=== PATIENT | male | born 1945 | race Caucasian/White ===

== ENCOUNTER 2016-10-23 10:11 | Inpatient (IN) | payer MEDICAID, MEDICARE ==
[2016-10-23] MEDS ORDERED: SODIUM CHLORIDE 0.9% 1,000 ML IV STA (10:40)
[2016-10-23 11:05] LABS: Basophils % (A) 0 %; CHCM 32.3; Eosinophils # (A) 0.1 k/uL (0-0.7); Eosinophils % (A) 0 %; HCT 47.3 % (39.0-53.0); HGB 15.3 gm/dL (13.0-17.5); Luc % (Auto) 2; Lymphocytes # (A) 1.4 k/uL (1.0-4.8); Lymphocytes % (A) 11 %; MCH 30.2 pg (25.0-35.0); MCHC 32.3 g/dL (31.0-37.0); MCV 93.3 fL (80.0-100.0); Mean Platelet Volume 9.4; Monocytes # (A) 0.7 k/uL (0-1.0); Monocytes % (A) 5 %; Neutrophils # (A) 10.3 k/uL (1.3-7.7); Neutrophils % (A) 81 %; RBC 5.06 m/uL (4.30-5.90); RDW 14.2 % (11.5-15.5); WBC 12.7 k/uL (3.8-10.6)
[2016-10-23 11:15] LABS: ALT 43 U/L (21-72); AST 30 U/L (17-59); Alkaline Phosphatase 147 U/L (38-126); Anion Gap 15 mmol/L; Blood Urea Nitrogen 13 mg/dL (9-20); Calcium 9.1 mg/dL (8.4-10.2); Carbon Dioxide 19 mmol/L (22-30); Chloride 111 mmol/L (98-107); Glucose 112 mg/dL (74-99); Magnesium 1.9 mg/dL (1.6-2.3); Non-African American GFR(MDRD) >60 (>60 ml/min/1.73 sqM); Phosphorous 3.4 mg/dL (2.5-4.5); Potassium 4.2 mmol/L (3.5-5.1); Sodium 145 mmol/L (137-145); Total Bilirubin 1.8 mg/dL (0.2-1.3); Total Protein 6.3 g/dL (6.3-8.2)
[2016-10-23 11:18] LABS: INR 1.2 (<1.1); Partial Thromboplastin Time 23.2 sec (22.0-30.0); Prothrombin Time 11.7 sec (9.0-12.0)
[2016-10-23 11:40] LABS: Creatine Kinase MB 2.1 ng/mL (0.0-2.4)
[2016-10-23 11:43] LABS: Troponin I 0.095 ng/mL (0.000-0.034)
[2016-10-23 12:05] LABS: Acetaminophen <10.0 ug/mL; Salicylate <1.0 mg/dL
[2016-10-23] MEDS ORDERED: HEPARIN SODIUM,PORCINE 5,000 UNIT/ML 1 ML VIAL IV PRN (12:58)
[2016-10-23] MEDS ORDERED: HEPARIN SODIUM,PORCINE 5,000 UNIT/ML 1 ML VIAL IV ONE (12:58)
[2016-10-23] MEDS ORDERED: ASPIRIN 81 MG CHEW PO STA (12:58)
[2016-10-23] MEDS ORDERED: NITROGLYCERIN SL TABS 0.4 MG TAB SUBLINGUAL PRN ×2 (12:58→13:40)
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
[2016-10-23] MEDS ORDERED: HEPARIN SODIUM,PORCINE/D5W PMX 25,000 UNIT in DEXTROSE/WATER 1 500ML.BAG IV SCH (13:00)
--- NOTE | 2016-10-23 13:06 | XR ---
EXAMINATION TYPE: XR chest 1V DATE OF EXAM: 10/23/2016 COMPARISON: NONE HISTORY: Difficulty breathing TECHNIQUE: Single frontal view of the chest is obtained. FINDINGS: Diffuse perihilar interstitial process seen with tiny bilateral effusions and cardiomegaly . No pneumothorax. Chronic rib cage deformity seen. Arthropathy of the shoulders. Correlate for under lying COPD. IMPRESSION: 1. Perihilar interstitial pattern with tiny bilateral effusions. Correlate for mild venous congestion . Differential diagnosis would also include atypical or interstitial pneumonitis.
[2016-10-23] MEDS ORDERED: ALPRAZolam 0.25 MG TAB PO PRN (13:40)
[2016-10-23] MEDS ORDERED: FUROSEMIDE 10 MG/ML 2 ML VIAL IV STA (13:40)
[2016-10-23] MEDS ORDERED: ATORVASTATIN 80 MG TAB PO STA (13:40)
[2016-10-23] MEDS ORDERED: ASPIRIN 325 MG TAB PO STA (13:40)
[2016-10-23] MEDS ORDERED: SODIUM CHLORIDE 0.9% 1,000 ML in EMPTY BAG 1 BAG IV ONE (13:40)
[2016-10-23] MEDS ORDERED: ALPRAZolam 0.5 MG TAB PO PRN (13:40)
[2016-10-23] MEDS ORDERED: IV FLUID CONTINUATION 650 ML IV ONE (14:04)
[2016-10-23] MEDS ORDERED: diphenhydrAMINE 50 MG/ML 1 ML VIAL IVP ONE (14:18)
[2016-10-23] MEDS ORDERED: diphenhydrAMINE 50 MG/ML 1 ML VIAL ONE (14:20)
[2016-10-23] MEDS ORDERED: MIDAZOLAM 2 MG/2 ML VIAL IV ONE (14:20)
[2016-10-23] MEDS ORDERED: MIDAZOLAM 2 MG/2 ML VIAL ONE (14:21)
[2016-10-23] MEDS ORDERED: LIDOCAINE 2% INJ 20 MG/ML SQ ONE (14:23)
[2016-10-23] MEDS ORDERED: HEPARIN SODIUM 1,000 UNIT/ML VIAL ONE (14:25)
[2016-10-23] MEDS ORDERED: VERAPAMIL SYRINGE (5 MG/10 ML) INTRAARTER ONE (14:26)
[2016-10-23] MEDS ORDERED: LIDOCAINE 2% SYG (PF) 100 MG/5 ML IV ONE (14:35)
[2016-10-23] MEDS ORDERED: IOHEXOL 350 MG/ML 125ML BOTTLE INJ ONE (14:48)
[2016-10-23] MEDS ORDERED: RX INFO: IV CONTRAST WAS GIVEN 1 EACH MISC MISCELLANE PRN (14:51)
[2016-10-23] MEDS ORDERED: SODIUM CHLORIDE 0.9% 1,000 ML IV SCH (15:00)
[2016-10-23 15:18] LABS: Glucose,Whole Blood 91 mg/dL (75-99)
[2016-10-23] MEDS: SPIRONOLACTONE 25 MG TAB PO SCH (16:00)
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
[2016-10-23 18:11] LABS: Creatine Kinase MB 1.9 ng/mL (0.0-2.4)
[2016-10-23 18:15] LABS: Troponin I 0.118 ng/mL (0.000-0.034)
[2016-10-23] MEDS: FUROSEMIDE 10 MG/ML 2 ML VIAL IV SCH (20:53)
[2016-10-23] MEDS: MAGNESIUM SULFATE-D5W PMX 1 GM in DEXTROSE/WATER 1 100ML.BAG IVPB SCH ×2 (20:58→23:23)
--- NOTE | 2016-10-23 23:12 | CC ---
DATE OF SERVICE: Mr. Auguste is a 71-year-old male with no prior cardiac history, who is not followed by a physician regularly who presented with symptoms of progressive dyspnea going on for the last few days and has noted to be bradycardic at home. He came into the emergency room and was found to have a complete heart block, findings of congestive heart failure as well as minimal elevation of troponin. In view of that, recommendation made regarding cardiac catheterization. The procedure as well as the risks and complications were discussed with the patient who is in full understanding and agreement. PROCEDURE: Patient was brought to the slab lifting engineer in a fasting semisedated state after receiving fentanyl and Benadryl and after achieving moderate conscious sedated state, Using Xylocaine anesthesia and Seldinger technique, a 6 Australian sheath was introduced in right radial artery. Selective right and left coronary angiography was performed using 5 Australian 3-1/2 Bend right and left Eh catheter. Multiple view of the coronary arteries including hemiaxial views were obtained. Following that, a 5 Australian tight pigtail catheter was introduced into the left ventricle and a 30 degrees KUNZ view of the left ventricle was obtained. Following that, catheters were removed. Images were reviewed. Of note, the patient received 4000 units of heparin intravenously as well intra-arterial verapamil. After finishing the images of the left coronary system and while the catheter was in the descending aorta, not engaged at the ostium, the patient had 2 rounds of nonsustained ventricular tachycardia that was self-terminated. FINDINGS: LEFT MAIN: This is a large-size vessel bifurcating into left circumflex, left anterior descending artery. Left main coronary artery is without any evidence of significant obstructive coronary artery disease. Left anterior descending artery: This is a large-size vessel reaching toward the apex tapers down and distal third giving rise to 3 diagonal branches. The first one is moderate to large in caliber. The left anterior descending artery as well as its branches have no evidence of obstructive lung disease. Left circumflex: This is a large nondominant vessel, giving rise to 2 obtuse marginal branches. The left circumflex as well as its branches has no evidence of obstructive coronary artery disease. RIGHT CORONARY ARTERY: This is a large dominant vessel, bifurcating distally into PDA and posterolateral segment and branches. The right coronary artery and its branches have no evidence of obstructive disease. Left ventriculogram: Left ventriculogram was performed in 30 degrees KUNZ view and revealed severe anteroapical and inferior wall hypokinesis to akinesis. The estimated ejection fraction of 25%. HEMODYNAMICS: There was no gradient across the aortic valve. The left ventricular end-diastolic pressure was 26 millimeters mercury. CONCLUSION: 1. Normal coronary arteries. 2. Severely impaired left ventricular systolic function. 3. Spontaneous runs of ventricular tachycardia monomorphic. RECOMMENDATION: In view of the findings and the anatomy, I have recommended proceeding with evaluation for permanent pacemaker and ICD implantation. The opinion from Dr. Cedeno will be obtained and in the meantime we will continue present therapy. Those findings and recommendations were discussed with the patient and his family who are in full understanding and agreement. Duration of the procedure: 20 minutes.
[2016-10-23] MEDS: ENOXAPARIN 40 MG/0.4 ML SYRINGE SQ SCH (23:23)
[2016-10-24 01:11] LABS: Creatine Kinase MB 1.5 ng/mL (0.0-2.4)
[2016-10-24 01:17] LABS: Troponin I 0.135 ng/mL (0.000-0.034)
[2016-10-24 04:44] LABS: Basophils % (A) 0 %; CH 30.1; CHCM 32.4; Eosinophils # (A) 0.2 k/uL (0-0.7); Eosinophils % (A) 2 %; HCT 43.8 % (39.0-53.0); HDW 2.55; HGB 14.1 gm/dL (13.0-17.5); Luc % (Auto) 2; Lymphocytes # (A) 1.8 k/uL (1.0-4.8); Lymphocytes % (A) 17 %; MCHC 32.1 g/dL (31.0-37.0); MCV 93.4 fL (80.0-100.0); Mean Platelet Volume 9.9; Monocytes # (A) 0.7 k/uL (0-1.0); Monocytes % (A) 7 %; Neutrophils # (A) 7.6 k/uL (1.3-7.7); Neutrophils % (A) 72 %; RBC 4.69 m/uL (4.30-5.90); RDW 14.1 % (11.5-15.5); WBC 10.6 k/uL (3.8-10.6); WBC (Perox) 10.62
[2016-10-24 05:04] LABS: Anion Gap 10 mmol/L; Blood Urea Nitrogen 16 mg/dL (9-20); Calcium 8.4 mg/dL (8.4-10.2); Carbon Dioxide 22 mmol/L (22-30); Chloride 109 mmol/L (98-107); Cholesterol 125 mg/dL (<200); Glucose 107 mg/dL (74-99); HDL Cholesterol 23 mg/dL (40-60); Magnesium 2.4 mg/dL (1.6-2.3); Non-African American GFR(MDRD) >60 (>60 ml/min/1.73 sqM); Phosphorous 4.1 mg/dL (2.5-4.5); Potassium 3.8 mmol/L (3.5-5.1); Sodium 141 mmol/L (137-145); Triglycerides 84 mg/dL (<150)
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
[2016-10-24] MEDS ORDERED: Potassium Replacement Protocol 1 EACH MISC MISCELLANE PRN (05:49)
[2016-10-24] MEDS ORDERED: POTASSIUM CHLORIDE ER 20 MEQ TAB.ER PO SCH (06:00)
[2016-10-24] MEDS: ASPIRIN 81 MG CHEW PO SCH (08:22)
[2016-10-24] MEDS: SPIRONOLACTONE 25 MG TAB PO SCH (08:22)
[2016-10-24] MEDS: ENOXAPARIN 40 MG/0.4 ML SYRINGE SQ SCH (08:22)
[2016-10-24] MEDS: FUROSEMIDE 10 MG/ML 2 ML VIAL IV SCH (08:23)
[2016-10-24] MEDS ORDERED: ASPIRIN 325 MG TAB PO SCH (09:00)
--- NOTE | 2016-10-24 10:10 | PN ---
Mr. Auguste is a 71-year-old male who presented with symptoms of congestive heart failure, was found to have complete heart block and evidence of cardiomyopathy with runs of spontaneous ventricular tachycardia. He is feeling much better today. His breathing is stable. He denies any symptoms of chest pain. He denies any dizziness or palpitation. He continues to be in complete heart block with stable ventricle rhythm in the 40s. His blood pressure is stable and has not required any pressors. He is scheduled to undergo a ICD pacemaker implantation today. He continues to be on aspirin 320 mg daily, Lasix 20 mg IV q.12 hours and Aldactone 25 mg daily. PHYSICAL EXAMINATION: Blood pressure 138/60 with a heart rate in the 40s. LUNGS: Clear. HEART: Bradycardic S1, S2, no S3, and a systolic murmur heard at the base. ABDOMEN: Soft, nontender. EXTREMITIES: No edema left side, status post AKA on the right side. Right radial pulse intact. EKG revealed a sinus mechanism with a complete AV dissociation complete heart block. Lab data revealed BUN, creatinine of 16 and 0.89. Potassium 3.8. Hemoglobin of 14.1. His cholesterol is 125 with an LDL of 85. His Lyme disease titers are normal. IMPRESSION: 1. Cardiomyopathy of unclear etiology. 2. Complete heart block. 3. Spontaneous ventricle tachycardia. RECOMMENDATIONS: I will add an DORIS inhibitor to his regimen. Will await the implantation of his ICD and pacemaker. Subsequently we can add beta todd to his regimen. MTDD
[2016-10-24 10:30] VITALS: BMI 24.5
--- NOTE | 2016-10-24 11:03 | ECHOF ---
Referral Reason:chf MEASUREMENTS -------- HEIGHT: 175.3 cm WEIGHT: 78.0 kg BP: 146/74 RVIDd: 3.5 cm (< 3.3) IVSd: 1.2 cm (0.6 - 1.1) LVIDd: 5.0 cm (3.9 - 5.3) LVPWd: 1.1 cm (0.6 - 1.1) IVSs: 1.7 cm LVIDs: 3.6 cm LVPWs: 1.4 cm LA Diam: 4.2 cm (2.7 - 3.8) LAESV Index (A-L): 23.10 ml/m Ao Diam: 3.1 cm (2.0 - 3.7) AV Cusp: 2.2 cm (1.5 - 2.6) MV EXCURSION: 12.842 mm (> 18.000) MV EF SLOPE: 113 mm/s (70 - 150) EPSS: 0.7 cm AV maxP.79 mmHg AV meanP.70 mmHg RAP: 15.00 mmHg RVSP: 73.28 mmHg FINDINGS -------- Resting bradycardia (HR<60bpm). This was a technically good study. The left ventricular size is normal. There is borderline concentric left ventricular hypertrophy. Overall left ventricular systolic function is moderate-severely impaired with, an EF between 30 - 35 %. Apical anterior LV wall motion is hypokinetic. Apical lateral LV wall motion is hypokinetic. Apical inferior LV wall motion is hypokinetic. Apical septum LV wall motion is hypokinetic. The right ventricle is mildly enlarged. The left atrium is mildly dilated. Normal LA size by volume 22+/-6 ml/m2. The right atrium is normal in size. There is mild aortic valve sclerosis. There is mild aortic stenosis present. Peak/mean gradient across the Aortic Valve is 21.79mmHg / 6.70mmHg. The mitral valve leaflets are mildly thickened. Mild mitral annular calcification present. Mild mitral regurgitation is present. [id number] tricuspid regurgitation present. There is severe pulmonary hypertension. The right ventricular systolic pressure, as measured by Doppler, is 73.28mmHg. The pulmonic valve is normal. The aortic root size is normal. The inferior vena cava is dilated with no significant inspiratory collapse which is consistent estimated right atrial pressure of >15 mmHg. The pericardium is normal. CONCLUSIONS -------- 1. Resting bradycardia (HR<60bpm). 2. The left atrium is mildly dilated. 3. Normal LA size by volume 22+/-6 ml/m2. 4. The right atrium is normal in size. 5. There is mild aortic valve sclerosis. 6. There is mild aortic stenosis present. 7. Peak/mean gradient across the Aortic Valve is 21.79mmHg / 6.70mmHg. 8. The mitral valve leaflets are mildly thickened. 9. Mild mitral annular calcification present. 10. Mild mitral regurgitation is present. 11. [id number] tricuspid regurgitation present. 12. This was a technically good study. 13. There is severe pulmonary hypertension. 14. The right ventricular systolic pressure, as measured by Doppler, is 73.28mmHg. 15. The pulmonic valve is normal. 16. The aortic root size is normal. 17. The inferior vena cava is dilated with no significant inspiratory collapse which is consistent estimated right atrial pressure of >15 mmHg. 18. The pericardium is normal. 19. The left ventricular size is normal. 20. There is borderline concentric left ventricular hypertrophy. 21. Apical anterior LV wall motion is hypokinetic. 22. Apical lateral LV wall motion is hypokinetic. 23. Apical inferior LV wall motion is hypokinetic. 24. Apical septum LV wall motion is hypokinetic. 25. The right ventricle is mildly enlarged. EXECUTIVE VICE PRESIDENT AND CHIEF FINANCIAL OFFICER: Julieta Leyva RDCS
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
[2016-10-24] MEDS ORDERED: IV FLUID CONTINUATION 100 ML IV ONE (15:05)
[2016-10-24] MEDS ORDERED: ceFAZolin 2 GM in SODIUM CHLORIDE 0.9% 100 ML IVPB ONE (15:30)
[2016-10-24] MEDS ORDERED: IOHEXOL 350 MG/ML 50ML BOTTLE INJ ONE (15:30)
[2016-10-24] MEDS ORDERED: ceFAZolin 1,000 MG in SODIUM CHLORIDE 0.9% IRRIGATIO 250 ML IRRIGATION ONE (15:31)
[2016-10-24] MEDS ORDERED: SODIUM CHLORIDE 0.9% 50 ML with ceFAZolin 1,000 MG IV ONE ×2 (15:49)
[2016-10-24] MEDS ORDERED: ceFAZolin 1,000 MG in DEXTROSE/WATER 1 50ML.BAG IVPB STA (15:50)
[2016-10-24] MEDS ORDERED: LIDOCAINE 2% INJ 20 MG/ML SQ ONE (15:50)
[2016-10-24] MEDS ORDERED: LIDOCAINE 1% INJ 10MG/ML (10 ML MDV) SQ ONE (16:19)
[2016-10-24] MEDS ORDERED: LACTATED RINGERS 1,000 ML IV ONE (16:26)
[2016-10-24] MEDS ORDERED: LIDOCAINE 1% INJ 10MG/ML (20 ML MDV) SQ ONE ×2 (16:27→16:35)
[2016-10-24] MEDS ORDERED: HYDROcodone/APAP 5-325MG 1 EACH TAB PO PRN (17:19)
[2016-10-24] MEDS ORDERED: ACETAMINOPHEN TAB 325 MG TAB PO PRN (17:19)
--- NOTE | 2016-10-24 17:25 | P.PCN ---
Preoperative Diagnosis: Impression 63-year-old male patient with severe nonischemic cardiomyopathy Symptomatic complete heart block without any transient causes, severe bradycardia with increasing shortness of breath for the last one month No evidence for acute myocardial infarction, any incriminating drugs or electrolyte abnormalities Spontaneous ventricular fibrillation noted in the hospital Severe LV dysfunction Class 2-3 congestive heart failure Dual-chamber ICD implantation for complete heart block with bradycardia and severe cardio myopathy with documented ventricular fibrillation, secondary prevention of sudden cardiac , [employer] Plan Initiate beta blockers now after dual-chamber pacing IV antibiotics Dictation to follow Postoperative Diagnosis: Procedure(s) Performed: Implants: Indications for Procedure: Operative Findings: Description of Procedure:
[2016-10-24] MEDS ORDERED: ACETAMINOPHEN IV (For NPO) 1,000 MG in EMPTY BAG 1 BAG IVPB ONE (17:30)
[2016-10-24] MEDS: METOPROLOL SUCCINATE (ER) 50 MG TAB.ER.24H PO SCH (18:08)
--- NOTE | 2016-10-24 20:45 | CE ---
DATE OF SERVICE: A 71-year-old male patient who presented with third degree heart block and severe cardiomyopathy, nonischemic nature with normal coronary arteries very severe left ventricular dysfunction and spontaneous ventricular fibrillation self terminating. A dual-chamber ICD implantation was performed with MAC (anesthesia present). The patient is brought to the [facility] in a fasting state. Written informed consent was obtained prior to the procedure. First the procedure was transvenous temporary pacemaker was placed via the right femoral vein. Venous access was obtained in the left femoral vein and temporary pacemaker was placed in the RV. Temporary pacing was performed through the procedure and this was removed at the end of the procedure and hemostasis was assured. The left pectoral area was then prepped and draped as per protocol. 1% lidocaine was used for local anesthesia. A 4 cm incision was made parallel to the deltopectoral groove about 1.5 cm medial to it. The incision was carried down to level of pectoralis muscle. A subfascial pocket was made. Hemostasis was assured. The left axillary vein was accessed at 2 separate points and via appropriate-sized introducer sheaths. Two leads were positioned in the right heart. The atrial lead was [employer], model #2088 [id number], 52 cm in length, serial #[id number]. P waves were 4.2 mV, and pacing impedance 850 ohms and finally at the end of the procedure, the pacing threshold was 1.25 v at 0.5 ms by the end of the procedure. The RV lead was a single coil ICD lead, model #7122Q, 58 cm in length, and serial #[id number]. The lead was positioned in the low RV septum and screwed in. R-waves 11.8 mV, pacing impedance 700 ohms. Pacing threshold 0.5 v at 0.5 ms. 10 volt test was negative. Both leads were secured to the underlying pectoralis fascia using 2 nonabsorbable sutures. Pocket was irrigated with antibiotic solution. Leads were correct to the generator, [employer], model #[id number], serial #[id number]. The lead and the generator were then placed in the subfascial pocket. The wound was closed in 3 layers and dressed per protocol. RESULT: 1. Successful dual-chamber ICD implantation for management of complete heart block with symptomatic heart failure, class II to III. 2. Severe left ventricle systolic dysfunction. 3. Normal coronary arteries. 4. Spontaneous ventricular fibrillation, self-limiting. PLAN: IV antibiotics and now start metoprolol succinate 50 mg p.o. daily and maximize. IV antibiotics for the next 24 hours.
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
[2016-10-24] MEDS: LISINOPRIL 5 MG TAB PO SCH (22:15)
[2016-10-24] MEDS: ceFAZolin 2 GM in SODIUM CHLORIDE 0.9% 100 ML IVPB SCH (23:51)
[2016-10-25] MEDS: ceFAZolin 2 GM in SODIUM CHLORIDE 0.9% 100 ML IVPB SCH ×3 (05:15→17:15)
[2016-10-25 05:31] LABS: Basophils % (A) 0 %; CH 29.8; CHCM 31.8; Eosinophils # (A) 0.4 k/uL (0-0.7); Eosinophils % (A) 4 %; HCT 43.9 % (39.0-53.0); HDW 2.51; Hypochromasia Slight; Luc # (Auto) 0.15; Luc % (Auto) 1; Lymphocytes # (A) 1.3 k/uL (1.0-4.8); Lymphocytes % (A) 12 %; MCH 30.1 pg (25.0-35.0); MCHC 31.9 g/dL (31.0-37.0); MCV 94.4 fL (80.0-100.0); Mean Platelet Volume 9.6; Monocytes # (A) 0.8 k/uL (0-1.0); Monocytes % (A) 7 %; Neutrophils # (A) 7.9 k/uL (1.3-7.7); Neutrophils % (A) 75 %; RBC 4.65 m/uL (4.30-5.90); WBC 10.5 k/uL (3.8-10.6)
[2016-10-25 05:47] LABS: Anion Gap 9 mmol/L; Blood Urea Nitrogen 15 mg/dL (9-20); Calcium 8.4 mg/dL (8.4-10.2); Carbon Dioxide 23 mmol/L (22-30); Chloride 109 mmol/L (98-107); Glucose 84 mg/dL (74-99); Magnesium 2.1 mg/dL (1.6-2.3); Non-African American GFR(MDRD) >60 (>60 ml/min/1.73 sqM); Sodium 141 mmol/L (137-145)
--- NOTE | 2016-10-25 06:50 | XR ---
EXAMINATION TYPE: XR chest 2V DATE OF EXAM: 10/25/2016 COMPARISON: Chest x-ray from 2 days ago. HISTORY: Arrhythmia status post pacemaker placement TECHNIQUE: Frontal and lateral views of the chest are obtained. FINDINGS: There is redemonstration of mild cardiomegaly. There is new 2-lead pacemaker/AICD with lead s projecting over right atrium and right ventricle. There are tiny bilateral pleural effusions with m ild central vascular congestion. There is patchy bibasilar atelectasis and/or infiltrate. Upper lungs are clear without pneumothorax. Osseous structures are intact. IMPRESSION: 1. New dual-lead pacemaker with leads in right atrium and right ventricle. 2. Persistent CHF exacerbation as there is cardiomegaly with small bilateral pleural effusions and ce ntral vascular congestion redemonstrated bilaterally. No significant change from prior study.
[2016-10-25] MEDS: LISINOPRIL 5 MG TAB PO SCH (08:29)
[2016-10-25] MEDS: ASPIRIN 81 MG CHEW PO SCH (08:29)
[2016-10-25] MEDS: METOPROLOL SUCCINATE (ER) 50 MG TAB.ER.24H PO SCH (08:29)
[2016-10-25] MEDS: SPIRONOLACTONE 25 MG TAB PO SCH (08:29)
[2016-10-25] MEDS ORDERED: FUROSEMIDE 10 MG/ML 4 ML VIAL IV SCH (09:30)
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
--- NOTE | 2016-10-25 12:20 | PN ---
Mr. Auguste is a 71-year-old male who presented with symptoms of congestive heart failure, was found to be in complete heart block. He underwent cardiac catheterization and had no evidence of significant obstructive disease, but had severely impaired left ventricular systolic function. He underwent an ICD pacemaker implantation yesterday because of episode of ventricle tachycardia. He is doing quite well this morning. He is ambulating. His energy is better. His breathing is better. He is denying any chest pain. No dizziness. No palpitation. He continues to be on furosemide 40 mg IV q.12 hours, lisinopril 5 mg twice a day, metoprolol succinate 50 mg daily and Aldactone 25 mg daily, in addition to aspirin once a day. PHYSICAL EXAMINATION: Blood pressure 123/60 with a heart rate in the 70s. LUNGS: Clear. HEART: Regular rate and rhythm. S1 and S2. No S3. Pacemaker site dressing in place. ABDOMEN: Soft, nontender. EXTREMITIES: No edema. Lab data revealed BUN and creatinine 15 and 0.74. Potassium 4. Hemoglobin of 14.0. IMPRESSION: 1. Status post ICD pacemaker implantation. 2. History of cardiomyopathy of unclear etiology. 3. Complete heart block. 4. Congestive heart failure, resolved. RECOMMENDATION: Patient will be discharged home today. I will switch him to oral diuretics. He will be followed as an outpatient next week and depending on his progress, further recommendations will be made.
[2016-10-25 14:19] VITALS: RESP 18
[2016-10-25 14:27] VITALS: PULSE 67
[2016-10-25] MEDS ORDERED: FUROSEMIDE 20 MG TAB PO SCH (16:00)
[2016-10-25 20:12] VITALS: BP 126/62; TEMP 98.6
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
--- NOTE | 2016-10-26 07:54 | DS ---
DATE OF ADMISSION: 10/23/2016 DATE OF DISCHARGE: 10/25/2016 ATTENDING NOTE: This patient was seen and examined by me earlier today. I reviewed the discharge summary of my nurse practitioner, Ms. Wyman. Reviewed and discussed additional findings below. This patient admitted with complete heart block and congestive heart failure, had a cardiac catheterization that showed normal coronaries. A 2D echo showed an EF of around 35%. Patient had a pacemaker placed today, up and about, feeling much better. On examination, lungs are clear. Patient is good to go home. Patient is seen by Dr. Forte from Cardiology and Dr. Martin from Pulmonary
== END 2016-10-25 19:05 | disposition home or self-care (01) | DRG 224 ==
LOC: EC 10:11 → 6SEL 12:58 → 6ICU 14:59 → 6SEL 10-25 09:29
PROVIDERS: ADMIT Hospitalist; ATTEND Hospitalist
PROC: B211YZZ Fluoroscopy of Multiple Coronary Arteries using Other Contrast (ICD-10-PCS; 2016-10-23)
PROC: B215YZZ Fluoroscopy of Left Heart using Other Contrast (ICD-10-PCS; 2016-10-23)
PROC: 02HK3KZ Insertion of Defibrillator Lead into Right Ventricle, Percutaneous Approach (ICD-10-PCS; 2016-10-24)
PROC: 02H63KZ Insertion of Defibrillator Lead into Right Atrium, Percutaneous Approach (ICD-10-PCS; 2016-10-24)
PROC: 0JH608Z Insertion of Defibrillator Generator into Chest Subcutaneous Tissue and Fascia, Open Approach (ICD-10-PCS; principal; 2016-10-24 15:05)
DX: I44.2 Atrioventricular block, complete (principal); I50.21 Acute systolic (congestive) heart failure; I42.9 Cardiomyopathy, unspecified; I47.2 Ventricular tachycardia; I49.01 Ventricular fibrillation; I27.2 Other secondary pulmonary hypertension; M19.041 Primary osteoarthritis, right hand; M19.042 Primary osteoarthritis, left hand; F32.9 Major depressive disorder, single episode, unspecified; K21.9 Gastro-esophageal reflux disease without esophagitis; Z89.611 Acquired absence of right leg above knee; Z87.820 Personal history of traumatic brain injury; Z87.442 Personal history of urinary calculi; Z87.891 Personal history of nicotine dependence; Z79.899 Other long term (current) drug therapy; Z82.49 Family history of ischemic heart disease and other diseases of the circulatory system
CPT/HCPCS: 33249; 36415; 71010; 71020; 80048; 80053; 80061; 82550; 82553; 83520; 83735; 83880; 83930; 84100; 84443; 84484; 85025; 85610; 85730; 86618; 93005; 93306; 93458

== ENCOUNTER → 2016-11-01 | Outpatient (CLI) | payer MEDICAID, MEDICARE ==
[2016-11-01 07:44] LABS: Anion Gap 10 mmol/L; Blood Urea Nitrogen 14 mg/dL (9-20); Calcium 8.9 mg/dL (8.4-10.2); Carbon Dioxide 25 mmol/L (22-30); Chloride 107 mmol/L (98-107); Glucose 99 mg/dL (74-99); Non-African American GFR(MDRD) >60 (>60 ml/min/1.73 sqM); Potassium 4.2 mmol/L (3.5-5.1); Sodium 142 mmol/L (137-145)
== END | disposition home or self-care (01) ==
LOC: LABWHC1 06:55
PROVIDERS: ATTEND Hospitalist
DX: I50.9 Heart failure, unspecified (principal)
CPT/HCPCS: 36415; 80048